=== PATIENT | female | born 1980 | race Hispanic/Latino ===

== ENCOUNTER 2024-11-24 10:53 | Outpatient (CLI) | payer OTHER | END 2024-11-24 10:54 | disposition home or self-care (01) | LOC: BICRAD 10:53 | PROVIDERS: ATTEND Nurse Practitioner Family | DX: M79.644 Pain in right finger(s) (principal) ==

== ENCOUNTER 2025-04-14 14:20 | Outpatient (CLI) | payer OTHER | END 2025-04-14 14:21 | disposition home or self-care (01) | LOC: ULT 14:20 | PROVIDERS: ATTEND Family Medicine | DX: O46.91 Antepartum hemorrhage, unspecified, first trimester (principal); Z3A.08 8 weeks gestation of pregnancy; R93.89 Abnormal findings on diagnostic imaging of other specified body structures | CPT/HCPCS: 76801 ==

== ENCOUNTER 2025-07-28 21:13 | Emergency (ER) | payer OTHER ==
[2025-07-28 22:12] LABS: ALT (SGPT) 15 U/L (Less than 34); AST (SGOT) 34 U/L (11-34); Albumin 3.4 g/dL (3.1-4.5); Alkaline Phosphatase 77 U/L (40-110); Anion Gap 16 mmol/L (10-20); BUN (Urea Nitrogen) 8 mg/dL (7.0-18.7); Bilirubin, Total 0.2 mg/dL (0.3-1.2); Calc. Creatinine Clearance 0 mL/min (70-130); Calcium 10.4 mg/dL (7.8-10.44); Carbon Dioxide 18 mmol/L (22-29); Chloride 109 mmol/L (98-107); Globulin 3.7 g/dL (2.4-3.5); Glucose 85 mg/dL (70-105); Potassium 4.2 mmol/L (3.5-5.1); Sodium 139 mmol/L (136-145)
== END 2025-07-28 22:00 | disposition short-term general hospital (02) ==
LOC: ERS 21:13
DX: O42.912 Preterm premature rupture of membranes, unspecified as to length of time between rupture and onset of labor, second trimester (principal); O99.282 Endocrine, nutritional and metabolic diseases complicating pregnancy, second trimester; E03.9 Hypothyroidism, unspecified; Z79.890 Hormone replacement therapy; Z3A.23 23 weeks gestation of pregnancy
CPT/HCPCS: 80053; 99285